=== PATIENT | female | born 1955 | race African-American/Black ===

== ENCOUNTER 2021-08-22 16:56 | Inpatient (IN) | payer MEDICARE, OTHER ==
[~2021-08-22] VITALS: Ht 149.9 cm; Wt 62.5 kg
[2021-08-22] MEDS ORDERED: BUME1TAB34 PO (17:16)
[2021-08-22] MEDS ORDERED: CITA-144 PO (17:16)
[2021-08-22] MEDS ORDERED: ALBU8HFA IH (17:16)
[2021-08-22] MEDS ORDERED: DILT180C47 PO (17:16)
[2021-08-22] MEDS ORDERED: UMEC62.5 IH (17:16)
[2021-08-22] MEDS ORDERED: APIX5TAB PO (17:16)
[2021-08-22] MEDS ORDERED: CARV25 PO (17:16)
[2021-08-22] MEDS ORDERED: MIRT30 PO (17:16)
[2021-08-22] MEDS ORDERED: ATOR20TA86 PO (17:16)
[2021-08-22 17:28] LABS: COVID AG,FIA SOURCE NASOPHARYNGEAL
[2021-08-22 18:35] LABS: BASOPHILS % (AUTO) 1.3 % (0.0-2.0); EOSINOPHILS % (AUTO) 0.1 % (1.0-6.0); HEMOGLOBIN 12.6 g/dL (12.0-16.0); LYMPHOCYTES # (AUTO) 0.9 K/uL (1.0-4.8); LYMPHOCYTES % (AUTO) 26.9 % (22.0-44.0); MEAN CORPUSCULAR HEMOGLOBIN 32.9 pg (26.0-34.0); MEAN CORPUSCULAR VOLUME 97 fL (80-100); MONOCYTES # (AUTO) 0.4 K/uL (0.1-1.0); MONOCYTES % (AUTO) 11.5 % (2.0-9.0); NEUTROPHILS # (AUTO) 2.1 K/uL (1.8-7.7); NEUTROPHILS % (AUTO) 60.2 % (40.0-70.0); PLATELET COUNT (AUTO) 208 K/uL (150-450); RED BLOOD CELL COUNT(AUTO) 3.83 MIL/uL (4.00-5.20); RED CELL DISTRIBUTION WIDTH 14.7 % (11.5-14.5)
[2021-08-22 18:43] LABS: ANION GAP 10 mmol/L (8-16); CARBON DIOXIDE 30 mmol/L (22-29); CHLORIDE 100 mmol/L (98-107); CREATININE 0.98 mg/dL (0.60-1.30); GLOMERULAR FILTR. RATE CALC 57 mL/min (>60); GLUCOSE,RANDOM 132 mg/dL (70-110); POTASSIUM 3.1 mmol/L (3.5-5.1); SODIUM SERUM 140 mmol/L (136-145); UREA NITROGEN, BLOOD 14 mg/dL (7-18)
[2021-08-22] MEDS ORDERED: DEXAMETHASONE SOD PHOS 4 MG/ML 5 ML VIAL IVP ONE (18:45)
[2021-08-22 18:49] LABS: D-DIMER 0.2 mg/L FEU (0.00-0.50); INR 1.1 (0.9-1.1); PROTHROMBIN TIME 11.6 SEC (9.4-11.6)
[2021-08-22 19:00] LABS: ALANINE AMINOTRANSFERASE 61 U/L (12-78); ALBUMIN 3.4 g/dL (3.4-5.0); ALKALINE PHOSPHATASE 111 U/L (46-116); ASPARTATE AMINOTRANSFERASE 49 U/L (15-37); BILIRUBIN,TOTAL 0.5 mg/dL (0.1-1.0); CREATINE KINASE, TOTAL ONLY 71 U/L (26-192); FERRITIN 180 ng/mL (8-252); LACTATE DEHYDROGENASE 306 U/L (81-234); PHOSPHORUS 2.8 mg/dL (2.5-4.9)
[2021-08-22 19:32] LABS: ERYTHROCYTE SEDIMENTATION RATE 10 MM/HR (0-20)
[2021-08-22] MEDS ORDERED: ONDANSETRON HCL 4 MG/2 ML VIAL IVP PRN ×2 (19:45→20:45)
[2021-08-22] MEDS ORDERED: ACETAMINOPHEN 325 MG TABLET PO PRN ×2 (19:45→20:45)
[2021-08-22] MEDS ORDERED: MORPHINE SULFATE 2 MG/ML SYRINGE IVP PRN (20:45)
[2021-08-22] MEDS ORDERED: REMDESIVIR 200 MG in SODIUM CHLORIDE 0.9% 250 ML IV ONE (20:45)
[2021-08-22] MEDS ORDERED: MAGNESIUM HYDROXIDE SUSPENSION 30 ML UDCUP PO PRN (20:45)
[2021-08-22] MEDS ORDERED: BISACODYL 10 MG RECTAL RECTAL SUPPOSITORY PR PRN (20:45)
[2021-08-22] MEDS: MIRTAZAPINE 30 MG TABLET PO SCH (21:00)
[2021-08-22] MEDS: CARVEDILOL 25 MG TABLET PO SCH (21:33)
[2021-08-22] MEDS: APIXABAN 5 MG TABLET PO SCH (21:34)
[2021-08-22] MEDS: DOCUSATE SODIUM 100 MG CAPSULE PO SCH (21:34)
[2021-08-22] MEDS: ATORVASTATIN CALCIUM 20 MG TABLET PO SCH (21:34)
[2021-08-22] MEDS: BUMETANIDE 1 MG TABLET PO SCH (21:34)
[2021-08-22 21:37] VITALS: BP 146/87
[2021-08-23] VITALS (7 sets, daily range): BP systolic 118–150; BP diastolic 56–88
[2021-08-23] MEDS ORDERED: PNEUMOCOCCAL VACCINE POLYVALENT 0.5 ML VIAL [PPSV23] IM. ONE (07:00)
[2021-08-23] MEDS ORDERED: INFLUENZA VIRUS VACCINE QVS 2021-22 (6MO+)/PF 60 MCG/0.5 ML SYRINGE IM. ONE (07:00)
[2021-08-23 08:54] LABS: BASOPHILS % (AUTO) 2.4 % (0.0-2.0); EOSINOPHILS % (AUTO) 0 % (1.0-6.0); HEMATOCRIT 42.6 % (36-46); HEMOGLOBIN 14.2 g/dL (12.0-16.0); LYMPHOCYTES # (AUTO) 0.6 K/uL (1.0-4.8); LYMPHOCYTES % (AUTO) 25.2 % (22.0-44.0); MEAN CORPUSCULAR HEMOGLOBIN 32.7 pg (26.0-34.0); MEAN CORPUSCULAR HGB CONC 33.3 G/dL (31.0-37.0); MEAN CORPUSCULAR VOLUME 98 fL (80-100); MONOCYTES # (AUTO) 0.2 K/uL (0.1-1.0); MONOCYTES % (AUTO) 7.6 % (2.0-9.0); NEUTROPHILS # (AUTO) 1.4 K/uL (1.8-7.7); NEUTROPHILS % (AUTO) 64.8 % (40.0-70.0); PLATELET COUNT (AUTO) 218 K/uL (150-450); RED BLOOD CELL COUNT(AUTO) 4.34 MIL/uL (4.00-5.20); RED CELL DISTRIBUTION WIDTH 14.7 % (11.5-14.5)
[2021-08-23 09:04] LABS: ANION GAP 9 mmol/L (8-16); CALCIUM, TOTAL 9.3 mg/dL (8.8-10.5); CARBON DIOXIDE 31 mmol/L (22-29); CHLORIDE 102 mmol/L (98-107); CREATININE 0.95 mg/dL (0.60-1.30); GLOMERULAR FILTR. RATE CALC > 60 mL/min (>60); GLUCOSE,RANDOM 147 mg/dL (70-110); POTASSIUM 3.3 mmol/L (3.5-5.1); SODIUM SERUM 142 mmol/L (136-145); UREA NITROGEN, BLOOD 14 mg/dL (7-18)
[2021-08-23] MEDS: APIXABAN 5 MG TABLET PO SCH ×2 (09:19→20:08)
[2021-08-23] MEDS: DOCUSATE SODIUM 100 MG CAPSULE PO SCH ×2 (09:19→20:08)
[2021-08-23] MEDS: CITALOPRAM HYDROBROMIDE 20 MG TABLET PO SCH (09:20)
[2021-08-23] MEDS: DEXAMETHASONE 4 MG TABLET PO SCH (09:20)
[2021-08-23] MEDS: PANTOPRAZOLE SODIUM 40 MG DR TABLET PO SCH (09:20)
[2021-08-23] MEDS: CARVEDILOL 25 MG TABLET PO SCH ×2 (09:20→20:08)
[2021-08-23 09:28] LABS: C-REACTIVE PROTEIN QUANT 1.17 mg/dL (0.00-0.30); FERRITIN 204 ng/mL (8-252); LACTATE DEHYDROGENASE 310 U/L (81-234)
[2021-08-23] MEDS: DILTIAZEM HCL CD 180 MG ER CAPSULE PO SCH (11:22)
[2021-08-23] MEDS: BUMETANIDE 1 MG TABLET PO SCH ×2 (11:22→20:08)
[2021-08-23] MEDS ORDERED: POTASSIUM CHL 10 MEQ/WATER 50 ML IV PRN (16:45)
[2021-08-23] MEDS ORDERED: POTASSIUM CHLORIDE 20 MEQ ER TABLET PO PRN (16:45)
[2021-08-23] MEDS: ZOLPIDEM TARTRATE 5 MG TABLET PO PRN (20:08)
[2021-08-23] MEDS: ATORVASTATIN CALCIUM 20 MG TABLET PO SCH (20:08)
[2021-08-23] MEDS: MIRTAZAPINE 30 MG TABLET PO SCH (21:00)
[2021-08-23] MEDS: REMDESIVIR 100 MG in SODIUM CHLORIDE 0.9% 250 ML IV SCH (22:19)
[2021-08-23] MEDS: MIRTAZAPINE 15 MG TABLET PO SCH (22:27)
[2021-08-24] VITALS: BP 109/57
[2021-08-24 04:30] VITALS: BP 144/88
[2021-08-24 07:07] LABS: BASOPHILS % (AUTO) 0.1 % (0.0-2.0); EOSINOPHILS % (AUTO) 0 % (1.0-6.0); LYMPHOCYTES # (AUTO) 0.6 K/uL (1.0-4.8); MONOCYTES # (AUTO) 0.4 K/uL (0.1-1.0); MONOCYTES % (AUTO) 4.7 % (2.0-9.0)
[2021-08-24 07:17] LABS: HEMOGLOBIN 13.8 g/dL (12.0-16.0); LYMPHOCYTES % (AUTO) 7.5 % (22.0-44.0); MEAN CORPUSCULAR HGB CONC 33.7 G/dL (31.0-37.0); MEAN CORPUSCULAR VOLUME 98 fL (80-100); NEUTROPHILS # (AUTO) 7.5 K/uL (1.8-7.7); PLATELET COUNT (AUTO) 231 K/uL (150-450); RED BLOOD CELL COUNT(AUTO) 4.18 MIL/uL (4.00-5.20); RED CELL DISTRIBUTION WIDTH 14.5 % (11.5-14.5)
[2021-08-24 07:25] LABS: NEUTROPHILS % (AUTO) 87.7 % (40.0-70.0)
[2021-08-24 08:11] LABS: ALBUMIN 3.1 g/dL (3.4-5.0); BILIRUBIN,TOTAL 0.5 mg/dL (0.1-1.0); C-REACTIVE PROTEIN QUANT 0.49 mg/dL (0.00-0.30); CALCIUM, TOTAL 9.4 mg/dL (8.8-10.5); CREATININE 1.1 mg/dL (0.60-1.30); POTASSIUM 3.1 mmol/L (3.5-5.1); TOTAL PROTEIN, SERUM 7.2 g/dL (6.4-8.2)
[2021-08-24] MEDS: DILTIAZEM HCL CD 180 MG ER CAPSULE PO SCH (08:57)
[2021-08-24] MEDS: BUMETANIDE 1 MG TABLET PO SCH ×2 (08:57→20:30)
[2021-08-24] MEDS: CITALOPRAM HYDROBROMIDE 20 MG TABLET PO SCH (08:58)
[2021-08-24] MEDS: PANTOPRAZOLE SODIUM 40 MG DR TABLET PO SCH (08:58)
[2021-08-24] MEDS: DOCUSATE SODIUM 100 MG CAPSULE PO SCH ×2 (08:58→20:30)
[2021-08-24] MEDS: CARVEDILOL 25 MG TABLET PO SCH ×2 (08:58→21:00)
[2021-08-24] MEDS: APIXABAN 5 MG TABLET PO SCH ×2 (08:58→20:30)
[2021-08-24] MEDS: DEXAMETHASONE 4 MG TABLET PO SCH (08:58)
[2021-08-24 12:13] VITALS: BP 143/75
[2021-08-24 16:19] VITALS: BP 140/55
[2021-08-24 19:35] VITALS: BP 150/80
[2021-08-24] MEDS: ATORVASTATIN CALCIUM 20 MG TABLET PO SCH (20:30)
[2021-08-24] MEDS: MIRTAZAPINE 30 MG TABLET PO SCH (20:32)
[2021-08-24] MEDS: MIRTAZAPINE 15 MG TABLET PO SCH (20:34)
[2021-08-24] MEDS: ZOLPIDEM TARTRATE 5 MG TABLET PO PRN (20:37)
[2021-08-24] MEDS: REMDESIVIR 100 MG in SODIUM CHLORIDE 0.9% 250 ML IV SCH (23:29)
[2021-08-25 00:11] VITALS: BP 145/93
[2021-08-25 04:38] VITALS: BP 134/73
[2021-08-25 06:12] LABS: BASOPHILS % (AUTO) 0.2 % (0.0-2.0); EOSINOPHILS % (AUTO) 0 % (1.0-6.0); HEMATOCRIT 43.4 % (36-46); HEMOGLOBIN 14.1 g/dL (12.0-16.0); LYMPHOCYTES # (AUTO) 0.8 K/uL (1.0-4.8); LYMPHOCYTES % (AUTO) 6.9 % (22.0-44.0); MEAN CORPUSCULAR HEMOGLOBIN 31.9 pg (26.0-34.0); MEAN CORPUSCULAR HGB CONC 32.5 G/dL (31.0-37.0); MEAN CORPUSCULAR VOLUME 98 fL (80-100); MONOCYTES # (AUTO) 0.7 K/uL (0.1-1.0); MONOCYTES % (AUTO) 6.3 % (2.0-9.0); NEUTROPHILS # (AUTO) 9.8 K/uL (1.8-7.7); PLATELET COUNT (AUTO) 263 K/uL (150-450); RED BLOOD CELL COUNT(AUTO) 4.42 MIL/uL (4.00-5.20); RED CELL DISTRIBUTION WIDTH 14.9 % (11.5-14.5)
[2021-08-25 06:16] LABS: NEUTROPHILS % (AUTO) 86.6 % (40.0-70.0)
[2021-08-25 06:34] LABS: ALANINE AMINOTRANSFERASE 100 U/L (12-78); ALKALINE PHOSPHATASE 110 U/L (46-116); ANION GAP 7 mmol/L (8-16); ASPARTATE AMINOTRANSFERASE 67 U/L (15-37); BILIRUBIN,TOTAL 0.4 mg/dL (0.1-1.0); C-REACTIVE PROTEIN QUANT 0.27 mg/dL (0.00-0.30); CALCIUM, TOTAL 9.1 mg/dL (8.8-10.5); CARBON DIOXIDE 35 mmol/L (22-29); CHLORIDE 101 mmol/L (98-107); CREATININE 0.84 mg/dL (0.60-1.30); FERRITIN 164 ng/mL (8-252); GLOMERULAR FILTR. RATE CALC > 60 mL/min (>60); GLUCOSE,RANDOM 108 mg/dL (70-110); LACTATE DEHYDROGENASE 342 U/L (81-234); POTASSIUM 3.4 mmol/L (3.5-5.1); SODIUM SERUM 143 mmol/L (136-145); TOTAL PROTEIN, SERUM 7.2 g/dL (6.4-8.2); UREA NITROGEN, BLOOD 19 mg/dL (7-18)
[2021-08-25 08:01] VITALS: BP 163/102
[2021-08-25] MEDS: PANTOPRAZOLE SODIUM 40 MG DR TABLET PO SCH (08:28)
[2021-08-25] MEDS: DEXAMETHASONE 4 MG TABLET PO SCH (08:28)
[2021-08-25] MEDS: DILTIAZEM HCL CD 180 MG ER CAPSULE PO SCH (08:28)
[2021-08-25] MEDS: CITALOPRAM HYDROBROMIDE 20 MG TABLET PO SCH (08:28)
[2021-08-25] MEDS: BUMETANIDE 1 MG TABLET PO SCH ×2 (08:28→20:31)
[2021-08-25] MEDS: APIXABAN 5 MG TABLET PO SCH ×2 (08:29→20:32)
[2021-08-25] MEDS: DOCUSATE SODIUM 100 MG CAPSULE PO SCH ×2 (08:29→20:31)
[2021-08-25] MEDS: CARVEDILOL 25 MG TABLET PO SCH ×2 (09:00→21:00)
[2021-08-25 11:04] VITALS: BP 180/92
[2021-08-25] MEDS ORDERED: DEXTROSE 50%-WATER 25 GM/50 ML SYRINGE IVP PRN (13:15)
[2021-08-25] MEDS: HydrALAZINE HCL 25 MG TABLET PO SCH ×2 (14:32→20:32)
[2021-08-25] MEDS: INSULIN LISPRO 100 UNITS/ML SQ PRN ×2 (18:15→20:33)
[2021-08-25 18:26] LABS: GLUCOMETER DEV NAME(LOC) 5N.1C; GLUCOSE,POINT OF CARE 173 MG/DL (70-110)
[2021-08-25 20:06] LABS: GLUCOMETER DEV NAME(LOC) 5N.1C; GLUCOSE,POINT OF CARE 279 MG/DL (70-110)
[2021-08-25] MEDS: ATORVASTATIN CALCIUM 20 MG TABLET PO SCH (20:31)
[2021-08-25] MEDS: MIRTAZAPINE 15 MG TABLET PO SCH (20:31)
[2021-08-25 20:32] VITALS: BP 161/85
[2021-08-25] MEDS: ZOLPIDEM TARTRATE 5 MG TABLET PO PRN (20:32)
[2021-08-25] MEDS: REMDESIVIR 100 MG in SODIUM CHLORIDE 0.9% 250 ML IV SCH (23:05)
[2021-08-26 00:32] VITALS: BP 154/91
[2021-08-26 04:53] VITALS: BP 168/96
[2021-08-26 08:28] VITALS: BP 160/92
[2021-08-26] MEDS: DEXAMETHASONE 4 MG TABLET PO SCH (08:31)
[2021-08-26] MEDS: HydrALAZINE HCL 25 MG TABLET PO SCH (08:31)
[2021-08-26] MEDS: PANTOPRAZOLE SODIUM 40 MG DR TABLET PO SCH (08:31)
[2021-08-26] MEDS: APIXABAN 5 MG TABLET PO SCH ×2 (08:32→21:02)
[2021-08-26] MEDS: DOCUSATE SODIUM 100 MG CAPSULE PO SCH ×2 (08:32→21:01)
[2021-08-26] MEDS: BUMETANIDE 1 MG TABLET PO SCH ×2 (08:32→21:02)
[2021-08-26] MEDS: CITALOPRAM HYDROBROMIDE 20 MG TABLET PO SCH (08:32)
[2021-08-26] MEDS ORDERED: DILTIAZEM HCL CD 120 MG ER CAPSULE PO SCH (09:00)
[2021-08-26] MEDS: CARVEDILOL 25 MG TABLET PO SCH ×2 (09:00→21:00)
[2021-08-26 10:44] LABS: ALANINE AMINOTRANSFERASE 124 U/L (12-78); ALBUMIN 3.5 g/dL (3.4-5.0); ALKALINE PHOSPHATASE 134 U/L (46-116); ANION GAP 7 mmol/L (8-16); ASPARTATE AMINOTRANSFERASE 51 U/L (15-37); BILIRUBIN,TOTAL 0.7 mg/dL (0.1-1.0); CALCIUM, TOTAL 10.1 mg/dL (8.8-10.5); CARBON DIOXIDE 34 mmol/L (22-29); CHLORIDE 98 mmol/L (98-107); CREATININE 0.93 mg/dL (0.60-1.30); FERRITIN 153 ng/mL (8-252); GLOMERULAR FILTR. RATE CALC > 60 mL/min (>60); GLUCOSE,RANDOM 114 mg/dL (70-110); LACTATE DEHYDROGENASE 327 U/L (81-234); SODIUM SERUM 139 mmol/L (136-145); TOTAL PROTEIN, SERUM 8.2 g/dL (6.4-8.2); UREA NITROGEN, BLOOD 20 mg/dL (7-18)
[2021-08-26 10:48] LABS: POTASSIUM 2.9 mmol/L (3.5-5.1)
[2021-08-26 10:49] LABS: C-REACTIVE PROTEIN QUANT < 0.05 mg/dL (0.00-0.30)
[2021-08-26] MEDS ORDERED: SODIUM CHLORIDE 0.9% 1,000 ML ONE ×2 (11:05→11:49)
[2021-08-26] MEDS: HYDROCODONE/ACETAMINOPHEN 5-325 MG TABLET PO PRN (11:50)
[2021-08-26] MEDS ORDERED: DEXA1 PO (11:54)
[2021-08-26] MEDS ORDERED: HYDR-4174 PO (11:54)
[2021-08-26] MEDS ORDERED: POTASSIUM CHLORIDE 20 MEQ ER TABLET PO ONE (13:00)
[2021-08-26] MEDS: INSULIN LISPRO 100 UNITS/ML SQ PRN ×3 (13:20→20:57)
[2021-08-26 13:22] VITALS: BP 157/88
[2021-08-26] MEDS: REMDESIVIR 100 MG in SODIUM CHLORIDE 0.9% 250 ML IV SCH (16:11)
[2021-08-26 17:52] LABS: GLUCOMETER DEV NAME(LOC) 5S.1B; GLUCOSE,POINT OF CARE 127 MG/DL (70-110)
[2021-08-26 17:52] LABS: GLUCOMETER DEV NAME(LOC) 5S.1B; GLUCOSE,POINT OF CARE 166 MG/DL (70-110)
[2021-08-26 19:25] VITALS: BP 166/96
[2021-08-26 20:01] LABS: GLUCOMETER DEV NAME(LOC) 5N.1C; GLUCOSE,POINT OF CARE 166 MG/DL (70-110)
[2021-08-26 20:56] LABS: GLUCOMETER DEV NAME(LOC) 5N.1C; GLUCOSE,POINT OF CARE 241 MG/DL (70-110)
[2021-08-26] MEDS ORDERED: HydrALAZINE HCL 50 MG TABLET PO SCH (21:00)
[2021-08-26] MEDS: MIRTAZAPINE 15 MG TABLET PO SCH (21:01)
[2021-08-26] MEDS: ATORVASTATIN CALCIUM 20 MG TABLET PO SCH (21:02)
[2021-08-27 00:49] VITALS: BP 150/82
[2021-08-27 04:46] VITALS: BP 146/79
[2021-08-27 05:41] LABS: COVID AG,FIA SOURCE NASOPHARYNGEAL
[2021-08-27 05:51] LABS: GLUCOMETER DEV NAME(LOC) 5N.1C; GLUCOSE,POINT OF CARE 119 MG/DL (70-110)
[2021-08-27 06:10] VITALS: BP 146/104
[2021-08-27 08:41] VITALS: BP 143/82
[2021-08-27] MEDS: CARVEDILOL 25 MG TABLET PO SCH (08:52)
[2021-08-27] MEDS: BUMETANIDE 1 MG TABLET PO SCH (08:52)
[2021-08-27] MEDS: DOCUSATE SODIUM 100 MG CAPSULE PO SCH (08:52)
[2021-08-27] MEDS: PANTOPRAZOLE SODIUM 40 MG DR TABLET PO SCH (08:52)
[2021-08-27] MEDS: CITALOPRAM HYDROBROMIDE 20 MG TABLET PO SCH (08:53)
[2021-08-27] MEDS: APIXABAN 5 MG TABLET PO SCH (08:53)
[2021-08-27] MEDS: DEXAMETHASONE 4 MG TABLET PO SCH (08:53)
[2021-08-27] MEDS ORDERED: DILTIAZEM HCL CD 180 MG ER CAPSULE PO SCH (09:00)
[2021-08-27] MEDS: HYDROCODONE/ACETAMINOPHEN 5-325 MG TABLET PO PRN ×2 (09:55→14:11)
[2021-08-27 11:46] LABS: GLUCOMETER DEV NAME(LOC) 5S.1B; GLUCOSE,POINT OF CARE 133 MG/DL (70-110)
[2021-08-27] MEDS ORDERED: DIGOXIN 250 MCG/ML 2 ML AMP IVP ONE (12:30)
[2021-08-27 12:48] VITALS: BP 149/75
[2021-08-27] MEDS ORDERED: DIGO125T84 PO (15:06)
[2021-08-27 15:52] VITALS: BP 112/69
[2021-08-28] MEDS ORDERED: DIGOXIN 125 MCG TABLET PO SCH (09:00)
== END 2021-08-27 15:50 | disposition home or self-care (01) | DRG 177 ==
LOC: EMS 16:59 → 5N 20:15
PROVIDERS: ADMIT Internal Medicine; ATTEND Internal Medicine
PROC: XW033E5 Introduction of Remdesivir Anti-infective into Peripheral Vein, Percutaneous Approach, New Technology Group 5 (ICD-10-PCS; principal; 2021-08-22)
DX: U07.1 COVID-19 (principal); J12.82 Pneumonia due to coronavirus disease 2019; J96.91 Respiratory failure, unspecified with hypoxia; J45.901 Unspecified asthma with (acute) exacerbation; I48.20 Chronic atrial fibrillation, unspecified; J44.0 Chronic obstructive pulmonary disease with (acute) lower respiratory infection; E78.5 Hyperlipidemia, unspecified; E11.9 Type 2 diabetes mellitus without complications; E66.9 Obesity, unspecified; I11.0 Hypertensive heart disease with heart failure; I50.9 Heart failure, unspecified; Z86.73 Personal history of transient ischemic attack (TIA), and cerebral infarction without residual deficits; Z79.01 Long term (current) use of anticoagulants; Z79.899 Other long term (current) drug therapy; Z87.891 Personal history of nicotine dependence; Z98.84 Bariatric surgery status; Z68.27 Body mass index [BMI] 27.0-27.9, adult
CPT/HCPCS: 71045; 80048; 80053; 82550; 82728; 82962; 83615; 83735; 84100; 84132; 84145; 84484; 85025; 85379; 85610; 85651; 85730; 86140; 93005; 93306; 99291; J1100; J1160; J3480; J7030; J7050; J8540; Q9967; 36415-L1; 36415-TC